=== PATIENT | male | born 1995 | race Native Hawaiian/Other Pacific Islander ===

== ENCOUNTER 2019-10-29 15:05 | Outpatient (CLI) | payer BC | END 2019-10-29 23:11 | disposition home or self-care (01) | LOC: RAD 15:05 | DX: R07.81 Pleurodynia (principal); R06.02 Shortness of breath ==

== ENCOUNTER 2020-05-15 13:58 | Outpatient (CLI) | payer BC, OTHER | END 2020-05-15 20:48 | disposition home or self-care (01) | LOC: LAB 13:58 | DX: R06.02 Shortness of breath (principal); J02.9 Acute pharyngitis, unspecified; R53.83 Other fatigue; R52 Pain, unspecified | CPT/HCPCS: 87635; G2023; U00003 ==

== ENCOUNTER 2020-05-26 12:46 | Outpatient (CLI) | payer BC, OTHER | END 2020-05-26 19:23 | disposition home or self-care (01) | LOC: LAB 12:46 | DX: R53.83 Other fatigue (principal); R52 Pain, unspecified | CPT/HCPCS: 87635; G2023; U00003 ==